=== PATIENT | male | born 1955 | race Hispanic/Latino ===

== ENCOUNTER 2024-03-24 16:40 | Emergency (ER) | payer OTHER ==
[~2024-03-24] VITALS: Ht 167.6 cm; Wt 74.8 kg
[2024-03-24] MEDS: OXYMETAZOLINE HCL SPRAY 15 ML BOTTLE EN SCH (17:14)
[2024-03-24 17:18] LABS: BASOPHILS # (AUTO) 0.13 K/uL (0.00-0.20); BASOPHILS % (AUTO) 1.3 % (0.0-5.0); HEMATOCRIT 33.6 % (42-54); IMMATURE GRANULOCYTE ABSOLUTE 0.03 K/uL (0-1); LYMPHOCYTES # (AUTO) 2.4 K/uL (1.0-4.8); LYMPHOCYTES % (AUTO) 24.4 % (21.0-51.0); MEAN CORPUSCULAR HEMOGLOBIN 31.1 pg (27.0-33.0); MEAN CORPUSCULAR HGB CONC 35.4 g/dL (32.0-36.0); MEAN CORPUSCULAR VOLUME 87.7 fL (79-99); MONOCYTES # (AUTO) 0.8 K/uL (0.1-1.0); MONOCYTES % (AUTO) 8.4 % (3.0-13.0); NEUTROPHILS # (AUTO) 6.3 K/uL (1.8-7.7); NEUTROPHILS % (AUTO) 64.6 % (40.0-77.0); PLATELET COUNT (AUTO) 307 K/uL (130-400); RED BLOOD CELL COUNT(AUTO) 3.83 MIL/uL (4.50-6.20); RED CELL DISTRIBUTION WIDTH 15.1 % (11.0-15.5); WHITE BLOOD COUNT (AUTO) 9.7 K/uL (4.8-10.8)
[2024-03-24 17:30] LABS: INR <= 0.93 (0.85-1.15); PROTHROMBIN TIME 10.6 SEC (9.6-11.6)
[2024-03-24 17:32] LABS: ALBUMIN 2.2 g/dL (3.5-5.0); BILIRUBIN,TOTAL 0.4 mg/dL (0.2-1.0); CREATININE 0.7 mg/dL (0.5-1.3); MAGNESIUM 1.7 mg/dL (1.80-2.40); PARTIAL THROMBOPLASTIN TIME 29.9 SEC (26.3-35.5); TOTAL PROTEIN, SERUM 7.1 g/dL (6.0-8.3)
[2024-03-24 17:46] LABS: POTASSIUM 2.7 mmol/L (3.5-5.1)
[2024-03-24] MEDS: POTASSIUM BICARB/CIT AC 25 MEQ TABLET.EFF PO ONE (17:51)
[2024-03-24] MEDS: POTASSIUM CHLORIDE 10MEQ/100ML 100 ML IV ONE (17:52)
[2024-03-24] MEDS: TRANEXAMIC ACID 1000MG/10ML IV STA (18:00)
[2024-03-24] MEDS: BACITRACIN 1 EACH PACKET TP ONE ×2 (18:45)
[2024-03-24] MEDS: CEFTRIAXONE 1G VIAL IVPB ONE (18:56)
[2024-03-24] MEDS: CLINDAMYCIN IVPB 600MG/50ML 50 ML IV SCH (19:46)
[2024-03-24] MEDS: M.V.I. IV [ADULT] 10 ML, FOLIC ACID 1 MG, THIAMINE HCL 100 MG in 0.9%NACL 1000ML 1,000 ML IV STA (20:57)
[2024-03-24 23:23] VITALS: BP 165/94; PULSE 94; RESP 16; O2SAT 99
== END 2024-03-25 00:24 | disposition short-term general hospital (02) ==
LOC: EDH 16:40
DX: R04.0 Epistaxis (principal); D64.9 Anemia, unspecified; E87.6 Hypokalemia; E83.51 Hypocalcemia; F10.129 Alcohol abuse with intoxication, unspecified; Y90.6 Blood alcohol level of 120-199 mg/100 ml; E83.42 Hypomagnesemia; Z59.00 Homelessness unspecified
CPT/HCPCS: 99285; 96365; 96366; 30905; 96375 ×2; 96361; 83735; 80053; 85025; 85610; 85730; 86850; 86900; 86901; 87040 ×2; 83605; 36415; 93005; 84132; J3490 ×3; J7030; J0696; J3411; J3480

== ENCOUNTER 2024-11-25 19:41 | Emergency (ER) | payer SELFPAY ==
[~2024-11-25] VITALS: Ht 165.1 cm; Wt 63.5 kg
[2024-11-25 20:13] LABS: BASOPHILS # (AUTO) 0.21 K/uL (0.00-0.20); BASOPHILS % (AUTO) 1.9 % (0.0-5.0); EOSINOPHILS # (AUTO) 0.08 K/uL (0.00-0.70); EOSINOPHILS % (AUTO) 0.7 % (0.0-8.0); IMMATURE GRANULOCYTE ABSOLUTE 0.04 K/uL (0-1); LYMPHOCYTES # (AUTO) 3.8 K/uL (1.0-4.8); MEAN CORPUSCULAR HEMOGLOBIN 28.6 pg (27.0-33.0); MEAN CORPUSCULAR HGB CONC 34.8 g/dL (32.0-36.0); MONOCYTES # (AUTO) 0.8 K/uL (0.1-1.0); MONOCYTES % (AUTO) 6.9 % (3.0-13.0); NEUTROPHILS % (AUTO) 55.1 % (40.0-77.0); PLATELET COUNT (AUTO) 489 K/uL (130-400); RED BLOOD CELL COUNT(AUTO) 3.78 MIL/uL (4.50-6.20); RED CELL DISTRIBUTION WIDTH 14.6 % (11.0-15.5); WHITE BLOOD COUNT (AUTO) 10.9 K/uL (4.8-10.8)
[2024-11-25 20:25] LABS: CREATININE 0.8 mg/dL (0.5-1.3); POTASSIUM 3.2 mmol/L (3.5-5.1)
[2024-11-25] MEDS: PoTASSium BIcarbonate/CIT AC 25 MEQ TABLET.EFF PO ONE (20:49)
[2024-11-25] MEDS: 0.9%NACL 1000ML 1,000 ML IV ONE ×2 (20:49→22:53)
--- NOTE | 2024-11-25 21:37 | HMCIMG ---
Exam Type: CHEST 1VW Clinical Information: sob Comparison: None Findings: The lungs are clear of infiltrates. The heart is normal in size. The bony and soft tissue structures of the chest are unremarkable. Impression: Clear lungs.
[2024-11-26 00:59] LABS: CREATININE 0.8 mg/dL (0.5-1.3); POTASSIUM 3.7 mmol/L (3.5-5.1)
--- NOTE | 2024-11-26 01:04 | ERN ---
General Chief Complaint: Alcohol Intoxication Stated Complaint: ETOH Time Seen by MD: 19:45 Time Seen by Midlevel: 19:45 Source: patient, EMS History of Present Illness Initial Comments The patient is a 69-year-old male being brought in by EMS after patient was found outside a [employer] sleeping on the floor. Several concerned bystanders called the police department. Since the patient was not doing anything illegal the police department wanted patient medically cleared and evaluated so they called EMS. On arrival with the only complaint that the patient has a that he feels tired. He specifically denies any chest pain, shortness of breath, fever, chills, or any other symptoms at this time. Allergies: Coded Allergies: No Known Drug Allergies (Unverified Allergy, Unknown, 03/24/24) Past Medical History Past Medical History: No Pertinent History Past Surgical History: Other Social History Social History: Smokers, ETOH ROS Dictation CONSTITUTIONAL: Negative except for HPI HEAD/FACE: Negative except for HPI EENT: Negative except for HPI RESPIRATORY: Negative except for HPI GASTROINTESTINAL/ABDOMINAL: Negative except for HPI GENITOURINARY: Negative except for HPI MUSCULOSKELETAL: Negative except for HPI INTEGUMENTARY: Negative except for HPI NEUROLOGICAL/PSYCH: Negative except for HPI HEMATOLOGIC/LYMPHATIC: Negative except for HPI All Systems Negative, Except as noted above. 13 point review of systems assessed and all negative except for above. Physical Exam Physical Exam Dictation Vital Signs reviewed General Appearance: Alert, oriented x 3, no acute distress, unkempt Head and Face: non-traumatic. Eyes: PERRL, pink conjunctivas, eyelid no trauma, anterior chamber with arcus senilis. Ears: Pinnas intact and no signs of trauma or erythema ear canals clear and no discharge TM no erythema Nose: No discharge, no bleeding. Oropharynx: Mouth normal, tongue pink, pharynx clear,no erythema, tonsils no exudates, no abscesses noted, mucous membrane moist Neck: Supple, non-tender, no thyromegaly, no masses, no JVD, no bruits Breast:Deferred Chest:No tenderness, no crepitus, no paradoxical movement, no retractions Lungs:Clear, well-ventilated, symmetric, no rales, no wheezing, no rhonchi, no stridor, good breath sounds bilaterally Heart: Regular rate, regular rhythm, no murmur, no gallops Vascular: no peripheral edema, Abdomen: Soft, positive bowel sounds, nondistended, no guarding, nontender, no rebound, no masses no hepatomegaly, no splenomegaly, no Aguero's sign, no hernias. Rectal: Deferred Genital: Deferred Neurological: Normal speech, motor function intact, sensory function intact Musculoskeletal: Neck nontender, full range of motion, back nontender, full range of motion, Extremities: nontender, full range of motion Skin: Color pink, dry, no turgor, no rash, no lacerations, no abrasions, no contusions. Lymphatic: Deferred Results Laboratory and Microbiology Lab and Micro Result Laboratory Tests Test 11/25/24 20:05 11/26/24 00:34 White Blood Count 10.9 K/uL (4.8-10.8) H Red Blood Count 3.78 MIL/uL (4.50-6.20) L Hemoglobin 10.8 g/dL (14.0-18.0) L Hematocrit 31.0 % (42-54) L Mean Corpuscular Volume 82.0 fL (79-99) Mean Corpuscular Hemoglobin 28.6 pg (27.0-33.0) Mean Corpuscular Hemoglobin Concent 34.8 g/dL (32.0-36.0) Red Cell Distribution Width 14.6 % (11.0-15.5) Platelet Count 489 K/uL (130-400) H Mean Platelet Volume 8.1 fL (7.5-10.5) Immature Granulocyte % (Auto) 0.4 % (0-1) Neutrophils (%) (Auto) 55.1 % (40.0-77.0) Lymphocytes (%) (Auto) 35.0 % (21.0-51.0) Monocytes (%) (Auto) 6.9 % (3.0-13.0) Eosinophils (%) (Auto) 0.7 % (0.0-8.0) Basophils (%) (Auto) 1.9 % (0.0-5.0) Neutrophils # (Auto) 6.0 K/uL (1.8-7.7) Lymphocytes # (Auto) 3.8 K/uL (1.0-4.8) Monocytes # (Auto) 0.8 K/uL (0.1-1.0) Eosinophils # (Auto) 0.08 K/uL (0.00-0.70) Basophils # (Auto) 0.21 K/uL (0.00-0.20) H Absolute Immature Granulocyte (auto 0.04 K/uL (0-1) Nucleated Red Blood Cells 0.0 % (0.0-0.19) Sodium Level 122 mmol/L (136-145) L 133 mmol/L (136-145) L Potassium Level 3.2 mmol/L (3.5-5.1) L 3.7 mmol/L (3.5-5.1) Chloride Level 88 mmol/L (101-111) *L 99 mmol/L (101-111) L Carbon Dioxide Level 23 mmol/L (21-32) 25 mmol/L (21-32) Blood Urea Nitrogen 6 mg/dL (7-18) L 6 mg/dL (7-18) L Creatinine 0.8 mg/dL (0.5-1.3) 0.8 mg/dL (0.5-1.3) Glomerular Filtration Rate Calc 96 mL/min (>90) 96 mL/min (>90) Random Glucose 83 mg/dL (70-105) 94 mg/dL (70-105) Total Calcium 8.0 mg/dL (8.5-10.1) L 7.8 mg/dL (8.5-10.1) L Total Creatine Kinase 127 U/L (21-232) Troponin I High Sensitivity 10 ng/L (4-75) Labs Reviewed?: Yes MDM MDM: The patient is a 69-year-old male being brought in by EMS [facility] Several concerned bystanders called the police department. Since the patient was not doing anything illegal the police department wanted patient medically cleared and evaluated so they called EMS. On arrival with the only complaint that the patient has a that he feels tired. He specifically denies any chest pain, shortness of breath, fever, chills, or any other symptoms at this time. On physical examination the patient is in no acute distress. He appears unkempt. He is ambulatory with a steady gait without assistance. Initial vital signs are remarkable for a temperature of 98.1. A heart rate of 80 beats per minute. A blood pressure of 134/81. O2 saturation is 99% on room air. We will obtain basic labs and observed in the ER. CBC shows a white blood cell count of 10.9. His hemoglobin is stable at 10.8. His platelets are elevated 489. Chemistries reveal a sodium of 122 with a potassium of 3.2 and a chloride of 88. His cardiac enzymes are negative. CK is normal. Patient was given 1.5 L of IV fluids. Chemistries were rechecked. His chloride and sodium have improved. The patient has no other complaints and will be discharged. Differential diagnosis: Dehydration, electrolyte abnormality, severe anemia There are no social concerns with this patient. Prescription drug management Prescriptions will include: None Medical management and examination interpretation discussions were had by me with other qualified healthcare professionals as indicated for the patient's care. ED Course Orders Procedure Category Date Status Time Cbc With Differential LAB 11/25/24 Complete 19:59 Basic Metabolic Panel LAB 11/25/24 Complete 19:59 0.9%Nacl 1000ml (Ns PHA 11/25/24 Complete 1000ml) 21:00 Potassium Bicarb/Cit PHA 11/25/24 Complete Ac 25meq (K-Lyte Ta 21:00 Chest 1vw RAD 11/25/24 Resulted 20:57 12 Lead Ekg Tracing- EKG 11/25/24 Logged Technical 20:57 Troponin I High LAB 11/25/24 Complete Sensitivity 21:09 Creatine Kinase, Total LAB 11/25/24 Complete 21:09 0.9%Nacl 1000ml (Ns PHA 11/25/24 Complete 1000ml) 23:00 Basic Metabolic Panel LAB 11/25/24 Complete 23:54 Current Medications Medications (Trade) Dose Ordered Sig/Eneida Route PRN Reason Start Time Stop Time Status Last Admin Dose Admin Potassium Bicarbonate (K-Lyte Tablet Eff 25 Meq Tablet.eff) 50 meq ONCE ONCE PO 11/25/24 21:00 11/25/24 21:01 DC 11/25/24 20:49 Sodium Chloride 1,000 ml @ 0 mls/hr ONCE ONCE IV 11/25/24 21:00 11/25/24 21:01 DC 11/25/24 20:49 Sodium Chloride 1,000 ml @ 0 mls/hr ONCE ONCE IV 11/25/24 23:00 11/25/24 23:01 DC 11/25/24 22:53 Vital Signs Date Time Temp Pulse Resp B/P (MAP) Pulse Ox O2 Delivery O2 Flow Rate FiO2 11/26/24 01:08 98.1 71 18 126/72 99 Room Air* 0 21 11/25/24 23:45 71 18 124/72 96 Room Air* 0 21 11/25/24 22:33 98.1 74 20 129/78 Room Air* 0 21 11/25/24 21:11 98.1 78 18 127/71 Room Air* 0 21 11/25/24 20:13 98.1 80 16 131/79 Room Air* 0 21 11/25/24 19:44 98.1 80 16 134/81 99 Room Air 0 [facility] [address] [place], [place] [id number] IMAGING REPORT Signed PATIENT: HAM LORENZ MR#: [id number] : 1955 SEX: M AGE: 69 LOCATION: [facility] ORDER 57 STATUS: REG REPORT#: [id number] SERVICE 56 REASON: sob ORDERING PHYSICIAN: BEATRIZ VALENTINO PROCEDURE: CXR1VW - CHEST 1VW Exam Type: CHEST 1VW Clinical Information: sob Comparison: None Findings: The lungs are clear of infiltrates. The heart is normal in size. The bony and soft tissue structures of the chest are unremarkable. Impression: Clear lungs. DICTATED BY: WANDA PERES MD DATE: 11/25/242133 ELECTRONICALLY SIGNED BY: WANDA PERES MD DATE: 11/25/242136 DX & DISP Disposition: Discharge Departure Impression: Primary Impression: Dehydration Condition: Stable Referrals: SELF,REFERRAL (PCP) Time of Disposition: 01:04 I have reviewed the case, and I agree with, Diagnosis and Plan I performed the substantive portion of the visit. I have reviewed and personally made and approve the management plan that is documented in the note by myself or the DANNY. I acknowledge for responsibility for the patient's management plan. BEATRIZ VALENTINO Nov 26, 2024 01:04
[2024-11-26 01:08] VITALS: BP 126/72; PULSE 71; RESP 18; TEMP 98.1; O2SAT 99
--- NOTE | 2024-11-26 08:08 | EKG ---
[facility] Test Date: 2024-11-25 Test Time: 21:02:39 Pat Name: HAM SINGH Department: ED Room: Gender: M Event Technician: [id number] : 1955 Requested By: BEATRIZ VALENTINO Order Number: [id number] Reading MD: Prasanth Liriano Measurements Intervals [place] Rate: 80 P: 69 DE: 168 QRS: 57 QRSD: 118 T: 48 QT: 433 QTc: 501 Interpretive Statements Sinus rhythm Probable left ventricular hypertrophy Anterior ST elevation, probably due to LVH Prolonged QT interval Electronically Signed On 11-27-2024 17:13:47 WELL DIGGER by Prasanth Liriano Please click the below link to view image of tracing.
== END 2024-11-26 01:11 | disposition home or self-care (01) ==
LOC: EDH 19:41
DX: E86.0 Dehydration (principal); F17.200 Nicotine dependence, unspecified, uncomplicated
CPT/HCPCS: 99285; 96360; 71045; 96361; 82550; 84484; 80048 ×2; 85025; 36415 ×2; 93005; J7030 ×2